=== PATIENT | male | born 2000 | race Asian ===

== ENCOUNTER 2020-09-04 18:40 | Emergency (ER) | payer OTHER ==
[~2020-09-04] VITALS: Ht 172.7 cm; Wt 63.6 kg
[2020-09-04] MEDS ORDERED: BACITRACIN 0.9 GM PACKET OINTMENT TP ONE (20:30)
[2020-09-04 20:36] VITALS: BP 124/71
== END 2020-09-04 21:44 | disposition home or self-care (01) ==
LOC: EMS 18:42
DX: S60.812A Abrasion of left wrist, initial encounter (principal); W19.XXXA Unspecified fall, initial encounter; Y93.67 Activity, basketball; Y92.89 Other specified places as the place of occurrence of the external cause; Y99.8 Other external cause status
CPT/HCPCS: 99283